=== PATIENT | male | born 1960 ===

== ENCOUNTER 2020-12-04 14:22 | Observation (INO) ==
[2020-12-04] MEDS ORDERED: NS 0.9% 1000 ml BAG 1,000 ML IV ONE ×2 (16:16→16:35)
[2020-12-04] MEDS ORDERED: Albuterol HFA INHALER 8 gm MDI INH ONE (16:34)
[2020-12-04] MEDS ORDERED: methylPREDNISolone 125 mg 2 ML VIAL IV ONE (17:45)
[2020-12-04] MEDS ORDERED: cefTRIAXone 1 gm/50 mL NS BAG 1 GM/50 ML BAG IV ONE (17:47)
[2020-12-04] MEDS ORDERED: Azithromycin 500 mg/250 ml NS 500 MG/250 ML BAG IVPB ONE (17:47)
[2020-12-04 18:21] LABS: ABS Lymphocytes 0.9 10^3/ul (1.0-4.8); ABS Monocytes 1.1 10^3/ul (0-0.8); ABS Neutrophils 5.7 10^3/ul (1.5-7.7); Hematocrit 43 % (42-52); Hemoglobin 15.4 g/dL (14.0-18.0); Lymphocyte % 11.2 %; Mean Corpuscular HGB Conc 36 g/dL (31-36); Mean Corpuscular Hemoglobin 34 pg (27-31); Mean Corpuscular Volume 94 fL (80-94); Mean Platelet Volume 8.7 fL (7.4-10.4); Nucleated Red Blood Cells % 0.1; Platelet Count 141 10^3/uL (150-450); Red Blood Count 4.57 10^6 /uL (4.18-5.48); Red Cell Distribution Width 12 % (10-15); White Blood Count 7.7 10^3/uL (3.5-10.8)
[2020-12-04 18:29] LABS: INR 1.27 (0.86-1.15)
[2020-12-04 18:45] LABS: Rapid COVID-19 Molecular Undetected (Undetected)
[2020-12-04 18:45] LABS: ALT 58 U/L (7-52); AST 57 U/L (13-39); Albumin 3.9 g/dL (3.2-5.2); Albumin/Globulin Ratio 1.1 (1-3); Alkaline Phosphatase 53 U/L (35-149); Anion Gap 10 mmol/L (2-11); Blood Urea Nitrogen 16 mg/dL (6-24); C Reactive Protein 47.52 mg/L (<8.01); CO2 Carbon Dioxide 22 mmol/L (22-32); Calcium 8.6 mg/dL (8.6-10.3); Chloride 91 mmol/L (101-111); Globulin 3.7 g/dL (2-4); Glucose 115 mg/dL (70-100); Sodium 123 mmol/L (135-145); Total Protein 7.6 g/dL (6.4-8.9)
[2020-12-04 18:46] LABS: Influenza A Molecular Negative (Negative); Influenza B Molecular Negative (Negative)
[2020-12-04 18:48] LABS: Troponin I 0.03 ng/mL (<0.03)
[2020-12-04] MEDS ORDERED: Enoxaparin 40 MG/0.4 ML SYR SUBCUT SCH (20:00)
[2020-12-04 20:08] LABS: TSH Ultra Thyroid Stim Horm 2.12 mcIU/mL (0.34-5.60)
[2020-12-04 20:15] LABS: Ferritin 982.5 ng/mL (24-336)
[2020-12-04 22:38] LABS: Urine Appearance Clear; Urine Bilirubin Negative (Negative); Urine Blood Negative (Negative); Urine Color Straw; Urine Glucose Negative (Negative); Urine Ketones Trace (Negative); Urine Nitrite Negative (Negative); Urine Protein Negative (Negative); Urine Specific Gravity 1.002 (1.002-1.030); Urine Urobilinogen Negative (Negative)
[2020-12-05] MEDS ORDERED: NS 0.9% 1000 ml BAG 1,000 ML IV SCH (03:00)
[2020-12-05 03:15] LABS: Magnesium 1.9 mg/dL (1.9-2.7)
[2020-12-05 03:17] LABS: Alcohol, S < 13 mg/dL (<13)
[2020-12-05 03:22] LABS: Calcium 8.4 mg/dL (8.6-10.3); Potassium 4.6 mmol/L (3.5-5.0)
[2020-12-05 07:52] LABS: Calcium 8.4 mg/dL (8.6-10.3); Magnesium 2.2 mg/dL (1.9-2.7); Potassium 4.3 mmol/L (3.5-5.0)
[2020-12-05 13:02] VITALS: BP 144/109
[2020-12-05] MEDS ORDERED: cefTRIAXone 1 gm/50 mL NS BAG 1 GM/50 ML BAG IVPB SCH (17:00)
== END 2020-12-05 14:20 | disposition home or self-care (01) ==
LOC: ED 14:22 → MED 22:01 → INTOOBSV 22:01 → SUATTDRO 22:01 → MED 22:09
PROVIDERS: ADMIT Internal Medicine; ATTEND Hospitalist